=== PATIENT | male | born 1940 | race Caucasian/White ===

== ENCOUNTER 2017-10-02 06:10 | Day surgery (SDC) | payer MEDICARE, OTHER ==
[~2017-10-02] VITALS: Ht 182.9 cm; Wt 94.8 kg
[~2017-10-02 06:10] MED LIST: ASPI81CH PO; ASPI81EC PO; BETA.25.45 OD; CLOP75 PO; LEVSOD100 PO; LEVSOD150 PO; LISI10 PO; LISI20 PO; SIMV10 PO; TRAV.004OP BOTHEYES; TRIA80TC TOP
[2017-10-02] MEDS ORDERED: Travatan Z5 ML BOTHEYES (06:29)
== END 2017-10-02 08:09 | disposition home or self-care (01) ==
LOC: ORSCSDS 06:10
PROVIDERS: Ophthalmology
PROC: 08RK3JZ Replacement of Left Lens with Synthetic Substitute, Percutaneous Approach (ICD-10-PCS; principal; 2017-10-02 07:30)
DX: H25.12 Age-related nuclear cataract, left eye (principal); E03.9 Hypothyroidism, unspecified; E78.5 Hyperlipidemia, unspecified; J44.9 Chronic obstructive pulmonary disease, unspecified; I12.9 Hypertensive chronic kidney disease with stage 1 through stage 4 chronic kidney disease, or unspecified chronic kidney disease; N18.9 Chronic kidney disease, unspecified; Z86.73 Personal history of transient ischemic attack (TIA), and cerebral infarction without residual deficits; Z85.038 Personal history of other malignant neoplasm of large intestine; Z87.891 Personal history of nicotine dependence; Z79.01 Long term (current) use of anticoagulants; Z79.82 Long term (current) use of aspirin; Z79.899 Other long term (current) drug therapy
CPT/HCPCS: J2250; J3301; J7040; V2632

== ENCOUNTER 2020-11-04 16:39 | Inpatient (IN) | payer MEDICARE, OTHER ==
[~2020-11-04] VITALS: Ht 175.3 cm; Wt 77.4 kg
[~2020-11-04 16:39] MED LIST changes: -ASPI81CH PO; +Aspir 8181 MG PO; +Travatan Z5 ML BOTHEYES
[2020-11-04 17:00] LABS: Hematocrit 28.8 % (37.0-53.0); Hemoglobin 9.4 g/dL (13.5-17.5); Mean Corpuscular HGB 29.1 pg (26.0-34.0); Mean Corpuscular HGB Conc 32.6 g/dL (31.5-36.5); Mean Corpuscular Volume 89 fL (80-100); Mean Platelet Volume 12.7 fL (9.1-12.4); Platelet Count 160 K/mm3 (150-400); RDW Coefficient Variation 13.9 % (11.7-14.2); RDW Standard Deviation 45.5 fL (35.1-46.3); Red Blood Cell Count 3.23 M/mm3 (4.30-5.90); White Blood Cell Count 23.17 K/mm3 (4.00-11.30)
[2020-11-04 17:28] LABS: BAND PERCENT MAN 12 % (0-8); BASOPHILS PERCENT MAN 0 % (0-2); EOSINOPHILS PERCENT MAN 0 % (0-6); METAMYELOCYTE ABSOLUTE MAN 0.23 K/mm3 (0.00-0.00); METAMYELOCYTE PERCENT MAN 1 % (0-0); MONOCYTES PERCENT MAN 0 % (4-13); MYELOCYTE ABSOLUTE MAN 0.23 K/mm3 (0.00-0.00); MYELOCYTE PERCENT MAN 1 % (0-0); SEG NEUTROPHILS PERCENT MAN 86 % (41-73); TOTAL CELLS COUNTED 100
[2020-11-04 17:38] LABS: CPK Creatine Kinase 78 U/L (39-308); Troponin I <0.015 ng/mL (0.000-0.040)
[2020-11-04 18:01] LABS: Alanine Aminotransfer (ALT/SGP 17 U/L (12-78); Albumin, Blood 2.9 g/dL (3.4-5.0); Albumin/Globulin Ratio 0.7 (0.8-1.8); Alk Phos 64 U/L (50-136); Anion Gap 16 mmol/L (6-16); Aspartate Aminotrans (AST/SGOT 17 U/L (12-37); Bilirubin, Total 0.3 mg/dL (0.1-1.0); Blood Urea Nitrogen 169 mg/dL (8-24); Bun/Creatinine Ratio 19.1 (12.0-20.0); CO2, Blood 13 mmol/L (21-32); Calcium, Blood 11.4 mg/dL (8.5-10.1); Chloride, Blood 112 mmol/L (98-108); Creatinine, Blood 8.83 mg/dL (0.60-1.20); Globulin, Blood 4.3 g/dL (2.2-4.0); Glomerular Filtration Rate 6 (60-); Glucose, Blood 122 mg/dL (70-99); Potassium, Blood 7.2 mmol/L (3.5-5.5); Sodium, Blood 141 mmol/L (136-145); Total Protein, Blood 7.2 g/dL (6.4-8.2)
[2020-11-04 19:06] LABS: Source, Urine Clean Catch
[2020-11-04] MEDS ORDERED: Simvastatin20 MG PO (19:08)
[2020-11-04] MEDS ORDERED: EUTHYROX200 MC1 PO (19:09)
[2020-11-04 19:13] LABS: Appearance, Urine Hazy (Clear); Bilirubin, Urine Neg (Neg); Blood, Urine 5+ (Neg); Color, Urine Yellow (P-Yellow); Glucose Qualitative, Urine Neg (Neg); Ketones, Urine Neg (Neg); Leukocyte Esterase, Urine 3+ (Neg); Nitrite, Urine Neg (Neg); Protein, Urine 3+ (Neg); Urobilinogen, Urine NORM (Normal)
[2020-11-04 19:22] LABS: Red Blood Cells, Urine 25-50 /hpf (0-2); Squamous Epithelial Cells Few /hpf (Few)
[2020-11-04 19:23] LABS: Bacteria Few /hpf
[2020-11-04 19:51] LABS: SARS-Cov-2 (COVID-19) PCR, MMC NEGATIVE (NEGATIVE)
[2020-11-04 21:19] LABS: Albumin, Blood 2.7 g/dL (3.4-5.0); Albumin/Globulin Ratio 0.7 (0.8-1.8); Bilirubin, Total 0.3 mg/dL (0.1-1.0); Bun/Creatinine Ratio 18.1 (12.0-20.0); Calcium, Blood 10.8 mg/dL (8.5-10.1); Creatinine, Blood 9.08 mg/dL (0.60-1.20); Globulin, Blood 4.1 g/dL (2.2-4.0); Potassium, Blood 6.7 mmol/L (3.5-5.5); Total Protein, Blood 6.8 g/dL (6.4-8.2)
[2020-11-05 03:22] LABS: BASOPHILS ABSOLUTE AUTO 0.03 K/mm3 (0.00-0.23); BASOPHILS PERCENT AUTO 0 % (0-2); Hemoglobin 8.9 g/dL (13.5-17.5); LYMPHOCYTES ABSOLUTE AUTO 0.15 K/mm3 (0.84-5.20); LYMPHOCYTES PERCENT AUTO 1 % (21-46); MONOCYTES ABSOLUTE AUTO 0.75 K/mm3 (0.16-1.47); MONOCYTES PERCENT AUTO 4 % (4-13); Mean Corpuscular HGB 29.4 pg (26.0-34.0); Mean Corpuscular Volume 89 fL (80-100); Mean Platelet Volume 12.1 fL (9.1-12.4); Platelet Count 121 K/mm3 (150-400); RDW Coefficient Variation 14.1 % (11.7-14.2); RDW Standard Deviation 45.9 fL (35.1-46.3); Red Blood Cell Count 3.03 M/mm3 (4.30-5.90); White Blood Cell Count 18.21 K/mm3 (4.00-11.30)
[2020-11-05 03:23] LABS: EOSINOPHILS PERCENT AUTO 0 % (0-6); IMMATURE GRAN ABSOLUTE AUTO 0.11 K/mm3 (0.00-0.10); IMMATURE GRAN PERCENT AUTO 1 % (0-1); NEUTROPHILS ABSOLUTE AUTO 17.17 K/mm3 (1.96-9.15); NEUTROPHILS PERCENT AUTO 94 % (41-73)
[2020-11-05 03:40] LABS: BAND PERCENT MAN 9 % (0-8); BASOPHILS PERCENT MAN 0 % (0-2); EOSINOPHILS PERCENT MAN 0 % (0-6); LYMPHOCYTES ABSOLUTE MAN 0.18 K/mm3 (0.84-5.20); LYMPHOCYTES PERCENT MAN 1 % (21-46); METAMYELOCYTE ABSOLUTE MAN 0.36 K/mm3 (0.00-0.00); METAMYELOCYTE PERCENT MAN 2 % (0-0); MONOCYTES ABSOLUTE MAN 0.18 K/mm3 (0.16-1.47); MONOCYTES PERCENT MAN 1 % (4-13); NEUTROPHILS ABSOLUTE MAN 17.48 K/mm3 (1.96-9.15); SEG NEUTROPHILS PERCENT MAN 87 % (41-73); TOTAL CELLS COUNTED 100
[2020-11-05 03:45] LABS: Magnesium, Blood 1.8 mg/dL (1.6-2.4)
[2020-11-05 03:46] LABS: CPK Creatine Kinase 62 U/L (39-308); Uric Acid, Blood 7.2 mg/dL (3.5-7.2)
[2020-11-05 03:54] LABS: Albumin, Blood 2.5 g/dL (3.4-5.0); Anion Gap 11 mmol/L (6-16); Blood Urea Nitrogen 162 mg/dL (8-24); Bun/Creatinine Ratio 17.8 (12.0-20.0); CO2, Blood 17 mmol/L (21-32); Calcium, Blood 10.2 mg/dL (8.5-10.1); Chloride, Blood 112 mmol/L (98-108); Creatinine, Blood 9.11 mg/dL (0.60-1.20); Glomerular Filtration Rate 6 (60-); Glucose, Blood 132 mg/dL (70-99); Phosphorus, Blood 6.6 mg/dL (2.5-4.9); Potassium, Blood 5.9 mmol/L (3.5-5.5); Sodium, Blood 140 mmol/L (136-145)
--- NOTE | 2020-11-05 06:33 | NUR ---
SHIFT SUMMARY ASSUMED CARE OF PT AT 2200. PT IS A/OX4 BUT VERY HARD OF HEARING AND SLIGHTLY LETHARGIC. HEART SOUNDS REGULAR BUT TACHY. TELE SHOWS SINUS TACH WITH PAC @ 150 BUT RATE SLOWED TO 135 AFTER FLUID BOLUS. BP WERE RUNNING LOW, AT ONE POINT PT MAP WAS BELOW 60, HOSPITALIST NOTIFIED AND ORDERED 1L FLUID BOLUS. PT RESPONDED WELL. LUNG SOUNDS ARE CLEAR, PT DENIES SOB. PT URINE IS VERY DARK AND CLOUDY, PT IS MOSTLY CONTINENT. PT IS HAVING VERY LOOSE DARK GREEN STOOLS ABOUT EVERY HOUR. PT BUTTOCK AND GROIN ARE VERY RED, BARRIER CREAM APPLIED. CALL LIGHT IN REACH, BED IN LOWEST POSTION.
--- NOTE | 2020-11-05 19:12 | NUR ---
SHIFT SUMMARY PT A/O X3 AND VERY HARD OF HEARING. ADMITTED FOR UREMIC ENCEPHALOPATHY. MULTIPLE BLACK/GREEN LIQUID BM'S T/O THE DAY. ANUS EXCORIATED AND BLEEDING BRIGHT RED BLOOD. PHYSICIAN AWARE. DYER PLACED IN ORDER TO COLLECT 24 HOUR URINE. VERY LITTLE OUTPUT AND DRAINING CLOUDY EMIGDIO URINE. VSS BUT BP SOFT. REPORT GIVEN TO ONCOMING RN.
[2020-11-05 20:31] LABS: BASOPHILS ABSOLUTE AUTO 0.03 K/mm3 (0.00-0.23); BASOPHILS PERCENT AUTO 0 % (0-2); Hematocrit 24.1 % (37.0-53.0); Hemoglobin 7.9 g/dL (13.5-17.5); LYMPHOCYTES ABSOLUTE AUTO 0.22 K/mm3 (0.84-5.20); LYMPHOCYTES PERCENT AUTO 1 % (21-46); MONOCYTES ABSOLUTE AUTO 0.87 K/mm3 (0.16-1.47); MONOCYTES PERCENT AUTO 5 % (4-13); Mean Corpuscular HGB Conc 32.8 g/dL (31.5-36.5); Mean Corpuscular Volume 89 fL (80-100); Mean Platelet Volume 12.9 fL (9.1-12.4); Platelet Count 116 K/mm3 (150-400); RDW Coefficient Variation 14.5 % (11.7-14.2); RDW Standard Deviation 46.4 fL (35.1-46.3); Red Blood Cell Count 2.72 M/mm3 (4.30-5.90); White Blood Cell Count 16.56 K/mm3 (4.00-11.30)
[2020-11-05 20:32] LABS: EOSINOPHILS ABSOLUTE AUTO 0.03 K/mm3 (0.00-0.68); EOSINOPHILS PERCENT AUTO 0 % (0-6); IMMATURE GRAN ABSOLUTE AUTO 0.16 K/mm3 (0.00-0.10); IMMATURE GRAN PERCENT AUTO 1 % (0-1); NEUTROPHILS ABSOLUTE AUTO 15.25 K/mm3 (1.96-9.15); NEUTROPHILS PERCENT AUTO 92 % (41-73)
[2020-11-06 05:00] LABS: Protein, Urine Quantitative 762.5 mg/dL (0.0-11.9)
[2020-11-06 05:21] LABS: BASOPHILS ABSOLUTE AUTO 0.03 K/mm3 (0.00-0.23); BASOPHILS PERCENT AUTO 0 % (0-2); Hematocrit 21.7 % (37.0-53.0); Hemoglobin 7.2 g/dL (13.5-17.5); LYMPHOCYTES ABSOLUTE AUTO 0.22 K/mm3 (0.84-5.20); LYMPHOCYTES PERCENT AUTO 2 % (21-46); MONOCYTES ABSOLUTE AUTO 0.59 K/mm3 (0.16-1.47); MONOCYTES PERCENT AUTO 5 % (4-13); Mean Corpuscular HGB Conc 33.2 g/dL (31.5-36.5); Mean Corpuscular Volume 88 fL (80-100); Platelet Count 113 K/mm3 (150-400); RDW Coefficient Variation 14.4 % (11.7-14.2); RDW Standard Deviation 45.8 fL (35.1-46.3); Red Blood Cell Count 2.48 M/mm3 (4.30-5.90); White Blood Cell Count 13.12 K/mm3 (4.00-11.30)
[2020-11-06 05:22] LABS: EOSINOPHILS ABSOLUTE AUTO 0.19 K/mm3 (0.00-0.68); EOSINOPHILS PERCENT AUTO 1 % (0-6); IMMATURE GRAN ABSOLUTE AUTO 0.13 K/mm3 (0.00-0.10); IMMATURE GRAN PERCENT AUTO 1 % (0-1); Mean Platelet Volume 13.1 fL (9.1-12.4); NEUTROPHILS ABSOLUTE AUTO 11.96 K/mm3 (1.96-9.15); NEUTROPHILS PERCENT AUTO 91 % (41-73)
[2020-11-06 05:44] LABS: Magnesium, Blood 1.9 mg/dL (1.6-2.4)
--- NOTE | 2020-11-06 05:50 | NUR ---
SHIFT SUMMARY PT. A/OX3, NOT ORIENTATED TO TIME. ALERT AND AT TIMES LETHARGIC. IS EXTREMELY [place]. AT THE BEGINNING OF SHIFT DR. RAI WAS NOTIFIED OF ALL LABS, ELEVATED HR, LOW B/P AND MAP, AND LOW URINE OUTPUT. VERBAL ORDERS WERE GIVEN AND APPLIED. DYER IN PLACE WITH LITTLE URINE OUTPUT; CLOUDY/EMIGDIO. DID NOT HAVE ANY BM'S T/O THE NOC. PENDING STOOL SAMPLE. PT. ON TELE AT ST 120'S. PT. DENIES ANY SOB, CHEST DISCOMFORT OR ANY PAIN. BUTTOCK AREA (ANUS) RED/RAW APPLIED CREAM AND REPOSTIONED PT. T/O THE NOC.WILL CONT. TO MONITOR PT. TILL END OF SHIFT. CALL LIGHT IN REACH, BED ALARM ON, AND BED IN LOW POSITION.
[2020-11-06 06:07] LABS: BAND PERCENT MAN 4 % (0-8); BASOPHILS PERCENT MAN 0 % (0-2); EOSINOPHILS ABSOLUTE MAN 0.26 K/mm3 (0.00-0.68); EOSINOPHILS PERCENT MAN 2 % (0-6); LYMPHOCYTES ABSOLUTE MAN 0.39 K/mm3 (0.84-5.20); LYMPHOCYTES PERCENT MAN 3 % (21-46); METAMYELOCYTE ABSOLUTE MAN 0.52 K/mm3 (0.00-0.00); METAMYELOCYTE PERCENT MAN 4 % (0-0); MONOCYTES ABSOLUTE MAN 0.52 K/mm3 (0.16-1.47); MONOCYTES PERCENT MAN 4 % (4-13); NEUTROPHILS ABSOLUTE MAN 11.41 K/mm3 (1.96-9.15); SEG NEUTROPHILS PERCENT MAN 83 % (41-73); TOTAL CELLS COUNTED 100
[2020-11-06 06:09] LABS: Albumin, Blood 1.9 g/dL (3.4-5.0); Anion Gap 11 mmol/L (6-16); Blood Urea Nitrogen 162 mg/dL (8-24); Bun/Creatinine Ratio 17.7 (12.0-20.0); CO2, Blood 23 mmol/L (21-32); Calcium, Blood 10.4 mg/dL (8.5-10.1); Chloride, Blood 108 mmol/L (98-108); Creatinine, Blood 9.16 mg/dL (0.60-1.20); Glomerular Filtration Rate 6 (60-); Glucose, Blood 126 mg/dL (70-99); Phosphorus, Blood 7.9 mg/dL (2.5-4.9); Potassium, Blood 5.6 mmol/L (3.5-5.5); Sodium, Blood 142 mmol/L (136-145)
[2020-11-06 13:07] LABS: Percent Saturation 8.9 % (20.0-50.0)
[2020-11-06 13:30] LABS: Stool Occult Blood Guaiac 1 Pos (Neg)
[2020-11-06 16:00] LABS: Hematocrit 20.3 % (37.0-53.0); Hemoglobin 6.9 g/dL (13.5-17.5); Mean Corpuscular HGB 29.2 pg (26.0-34.0); Mean Corpuscular Volume 86 fL (80-100); Mean Platelet Volume 12.7 fL (9.1-12.4); Platelet Count 112 K/mm3 (150-400); RDW Coefficient Variation 14.4 % (11.7-14.2); Red Blood Cell Count 2.36 M/mm3 (4.30-5.90); White Blood Cell Count 13.33 K/mm3 (4.00-11.30)
--- NOTE | 2020-11-06 18:06 | NUR ---
SHIFT SUMMARY PT IS AO TO SELF ONLY. PT C/O EPIGASTRIC PAIN WHILE EATING-PROVIDER NOTIFIED DURING AM ROUNDS. PT DENIES N/V, SOB. PT IS ON RA WITH EPISODES OF APNEA DURING SLEEP. DYER CATHETER DRAINING AND PATENT. PT HAS POOR APPETITE. POWERGLIDE TO TAMARA INFUSING. TELE RUNNING SINUS TACH WITH ONE INCIDENT OF 130S THAT HAS RESOLVED WITH IV FLUIDS. PT IS BEDREST. PT IS IN BED, CALL LIGHT IN REACH, LOW POSITIONS.
[2020-11-07 04:05] LABS: BASOPHILS ABSOLUTE AUTO 0.02 K/mm3 (0.00-0.23); BASOPHILS PERCENT AUTO 0 % (0-2); EOSINOPHILS ABSOLUTE AUTO 0.35 K/mm3 (0.00-0.68); EOSINOPHILS PERCENT AUTO 3 % (0-6); Hematocrit 18.8 % (37.0-53.0); Hemoglobin 6.4 g/dL (13.5-17.5); IMMATURE GRAN ABSOLUTE AUTO 0.07 K/mm3 (0.00-0.10); IMMATURE GRAN PERCENT AUTO 1 % (0-1); LYMPHOCYTES ABSOLUTE AUTO 0.22 K/mm3 (0.84-5.20); LYMPHOCYTES PERCENT AUTO 2 % (21-46); MONOCYTES ABSOLUTE AUTO 0.85 K/mm3 (0.16-1.47); MONOCYTES PERCENT AUTO 7 % (4-13); Mean Corpuscular HGB 29.2 pg (26.0-34.0); Mean Corpuscular Volume 86 fL (80-100); Mean Platelet Volume 12.9 fL (9.1-12.4); NEUTROPHILS PERCENT AUTO 87 % (41-73); Platelet Count 107 K/mm3 (150-400); RDW Coefficient Variation 14.4 % (11.7-14.2); RDW Standard Deviation 45.1 fL (35.1-46.3); Red Blood Cell Count 2.19 M/mm3 (4.30-5.90); White Blood Cell Count 11.71 K/mm3 (4.00-11.30)
[2020-11-07 04:53] LABS: Albumin, Blood 1.8 g/dL (3.4-5.0); Anion Gap 9 mmol/L (6-16); Blood Urea Nitrogen 163 mg/dL (8-24); CO2, Blood 26 mmol/L (21-32); Calcium, Blood 10.2 mg/dL (8.5-10.1); Chloride, Blood 106 mmol/L (98-108); Creatinine, Blood 9.06 mg/dL (0.60-1.20); Glomerular Filtration Rate 6 (60-); Glucose, Blood 125 mg/dL (70-99); Phosphorus, Blood 8.4 mg/dL (2.5-4.9); Potassium, Blood 5.4 mmol/L (3.5-5.5); Sodium, Blood 141 mmol/L (136-145)
--- NOTE | 2020-11-07 05:30 | NUR ---
SHIFT SUMMARY PT. A/OX2, NOT ORIENTATED TO TIME OR SITUATION. CONFUSED. IS EXTREMELY [place]. AT THE START OF SHIFT DR. RYDER CAME TO PT'S ROOM. NOTIFIED OF LABS AND HEMOGLOBIN OF 6.2. PER DR. RYDER WILL REVIEW AM LABS AND HE WILL PUT IN ORDERS. VSS. DYER IN PLACE; URINE EMIGDIO. ON TELE ST IN THE 120'S. PT. DENIES ANY SOB, CHEST PAIN OR CHEST PRESSURE. JOHN AND BUTTOCK AREA PINK/RED AND PAINFUL WHEN CLEANING AREA. APPLIED BARRIER CREAM. [place] ON COCCY AREA. PT. REPOSITIONED X2. PT. ON RA O2 ABOVE 92%. REPOSITINED Q2H. CALL LIGHT IN W/I REACH, BED ALARM ON, AND BED IN LOW POSTION. FREQUENT ROOM CHECKS.
[2020-11-07 14:47] LABS: Hematocrit 21.4 % (37.0-53.0); Hemoglobin 7.5 g/dL (13.5-17.5)
--- NOTE | 2020-11-07 19:30 | NUR ---
ASSUMED CARE. AOX3. SLOW TO RESPOND. FORGETFUL. WILL YELL OUT FOR HELP. BED ALARM IS ON. NS INFUSING INTO POWERGLIDE IN LUE. NS W BICARB INFUSING INTO PERIPHERIAL ON R AC. BOTH SITES WNL. LS DIMINISHED. NO COUGH OR CONGESTION NOTED. BLACK TARRY BM NOTED. CHANGED ATTENDS. 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 BARRIER CREAM APPLIED. CATHETER PATENT AND DRAINING. CLOUDY AT TIMES. STATES PAIN ALL OVER, BRUISING TO THE RIGHT SIDE OF BODY. REPOSITIONED IN BED. TELE RUNNING SINUS TACH. WILL CONTINUE TO MONITOR. CALL LIGHT IS IN REACH.
--- NOTE | 2020-11-07 19:35 | NUR ---
Reviw of patient with pysician and pt needs. Met with pt he was sleepy and slow but oriented. He is profoundly hard of hearing. Used hearing imparied brenna on my phone to communicate. Important and intricate subect matter so I could confirm understanding. pt having loose tarry stools. and low hemoglobin. pt very fatigued and shor converation and rest. Although alert he is very weak. Reviw with staff having his brother sahre decision making with him until he improves. To disfficult for him. Pt has very clear advance directive. Called his brother and reviewed his issues and needs. confirmed with brother and later carfully with patient wishes for DNR. pt brother and pt clear and adamant. Pt brother want reasonable and woudld like GI consult he has strong suppision he has cancer ans strong family history. He states pt functional until a few month ago. We discussed if cancer confirmed hospice is the choice. Pt live alone brther states he can no longer live on his own. His brother is also older pt may need placemnt.
--- NOTE | 2020-11-07 22:11 | NUR ---
FLUIDS GIVEN, REPOSITIONED FOR COMFORT. ATTENDS DRY. CALL LIGHT IN REACH. BED ALARM ON.
--- NOTE | 2020-11-08 00:26 | NUR ---
KRISTOPHER REPORTS PAIN HAS IMPROVED. HE FEELS A LOT BETTER. VITALS HAVE IMPROVED SOME. SITTING UP RIGHT IN BED, STATES IT IS COMFORTABLE FOR HIM. CALL LIGHT IS IN REACH, BED ALARM IS ON.
--- NOTE | 2020-11-08 02:00 | NUR ---
REPOSITIONED, HE FINISHED HIS WATER, IS WORKING ON SOME JUICE. CURRENTLY SLEEPING. STATES PAIN IS DOING "OK". BED ALARM ON, CALL LIGHT IN REACH/
[2020-11-08 04:09] LABS: Hematocrit 18.3 % (37.0-53.0); Hemoglobin 6.3 g/dL (13.5-17.5); Mean Corpuscular HGB 29.4 pg (26.0-34.0); Mean Corpuscular HGB Conc 34.4 g/dL (31.5-36.5); Mean Corpuscular Volume 86 fL (80-100); Mean Platelet Volume 12.2 fL (9.1-12.4); Platelet Count 92 K/mm3 (150-400); RDW Coefficient Variation 14.9 % (11.7-14.2); RDW Standard Deviation 46.4 fL (35.1-46.3); Red Blood Cell Count 2.14 M/mm3 (4.30-5.90); White Blood Cell Count 10.15 K/mm3 (4.00-11.30)
--- NOTE | 2020-11-08 04:18 | NUR ---
RESTING COMFORTABLY, REPOSITIONED ON RIGHT SIDE. DENIES ANY NEEDS.
[2020-11-08 04:52] LABS: Albumin, Blood 1.7 g/dL (3.4-5.0); Anion Gap 10 mmol/L (6-16); Blood Urea Nitrogen 148 mg/dL (8-24); Bun/Creatinine Ratio 17.1 (12.0-20.0); CO2, Blood 30 mmol/L (21-32); Calcium, Blood 10.5 mg/dL (8.5-10.1); Chloride, Blood 104 mmol/L (98-108); Creatinine, Blood 8.66 mg/dL (0.60-1.20); Glomerular Filtration Rate 6 (60-); Glucose, Blood 157 mg/dL (70-99); Phosphorus, Blood 8.5 mg/dL (2.5-4.9); Potassium, Blood 4.7 mmol/L (3.5-5.5); Sodium, Blood 144 mmol/L (136-145)
--- NOTE | 2020-11-08 05:20 | NUR ---
SHIFT SUMMARY: AOX2, SLOW TO RESPOND, [place]. FOLLOWS SOME DIRECTION. WILL YELL OUT AT TIMES, FORGETS TO USE CALL LIGHT. NEEDS CONSTANT CARE FOR REPOSITIONING, FLUID INTAKE AND BATHROOM NEEDS. VS WITH SINUS TACHYCARDIA. REPORTED PAIN TO THE RIGHT SIDE AROUND TO THE BACK. MD NOTIFED, FENTANYL 25MCQ GIVEN X1 THIS SHIFT, WHICH HELPED TO RELEIVE PAIN. WAS ABLE TO SLEEP PART OF SHIFT. CONTINUES TO HAVE LOOSE BLACK TARRY STOOLS. HELD BLOOD THINNERS. DYER PATENT AND DRAINING. STAGE 2 PRESSURE ULCER IN PERINUM, BARRIER CREAM APPLIED. BOTTOM RED. BRUSING ON BUE. IVF AND IV BICARB INFUSING T/O THE NIGHT. PHOSPHURUS 8.5, CREATINE 8.66. HGB BACK DOWN TO 6.3. ENDOSCOPE CANCELLED FOR TODAY DUE TO LOW PLATLET COUNT. WILL CONTINUE TO MONITOR, CALL LIGHT IS IN REACH, BED ALARM ON.
[2020-11-08 05:45] LABS: BAND PERCENT MAN 5 % (0-8); BASOPHILS PERCENT MAN 0 % (0-2); EOSINOPHILS PERCENT MAN 5 % (0-6); LYMPHOCYTES PERCENT MAN 3 % (21-46); MONOCYTES ABSOLUTE MAN 1.01 K/mm3 (0.16-1.47); MONOCYTES PERCENT MAN 10 % (4-13); NEUTROPHILS ABSOLUTE MAN 8.32 K/mm3 (1.96-9.15); SEG NEUTROPHILS PERCENT MAN 77 % (41-73); TOTAL CELLS COUNTED 100
--- NOTE | 2020-11-08 08:00 | NUR ---
pt laying in bed, awake, called nurse in to room for a change, he is confused, will be getting a unit of prbc's today, lungs are dim t/o, resp even and unlabored, no cough noted, hrr, tele in place running st per monitor, see strip, ppp+1, cap refill< 3sec, vs stable, afebrile, iv sites: piv to rac appears infiltrated, stopped iv will place another when time, power glide to jyoti, site is clear and patent, btx4, abd flat soft nontender, attends in place skin has a bruise to rflank otherwise c/d/i, heather quintero, call light in reach.
--- NOTE | 2020-11-08 09:59 | NUR ---
PHYSICIAN REQUESTED A PHOTO OF RECTAL/ANAL ULCER TO BE TAKEN AND PLACED ON CHART. ATTEMPTED TO OBTAIN PHOTO WITH UNIT STAFF CAMERA, BATTERY INSUFFICIENT TO COMPLETE ON TASK, PUT ON TECHNICAL TRAINING MANAGER. PRIMARY RN NOTIFIED TO COMPLETE THIS TASK.
--- NOTE | 2020-11-08 10:31 | NUR ---
ASPIRIN 81MG GIVEN PER PRIMARY NURSE REQUEST. VERIFIED WITH EMAR ORDER. GIVEN PO WITH APPLE SAUCE.
[2020-11-08 13:08] LABS: ANA DIRECT Negative (Negative); ANTIMYELOPEROXIDASE (MPO) ABS <9.0 U/mL (0.0-9.0); ANTIPROTEINASE 3 (PR-3) ABS <3.5 U/mL (0.0-3.5); ATYPICAL PANCA <1:20 titer (Neg:<1:20); CYTOPLASMIC (C-ANCA) <1:20 titer (Neg:<1:20); PERINUCLEAR (P-ANCA) <1:20 titer (Neg:<1:20)
[2020-11-08 14:08] LABS: ALBUMIN 2.6 g/dL (2.9-4.4); ALPHA-1-GLOBULIN 0.4 g/dL (0.0-0.4); ALPHA-2-GLOBULIN 0.8 g/dL (0.4-1.0); BETA GLOBULIN 0.7 g/dL (0.7-1.3); GAMMA GLOBULIN 0.9 g/dL (0.4-1.8); GLOBULIN, TOTAL 2.8 g/dL (2.2-3.9); IMMUNOGLOBULIN A, QN, SERUM 191 mg/dL (61-437); IMMUNOGLOBULIN G, QN, SERUM 739 mg/dL (603-1613); IMMUNOGLOBULIN M, QN, SERUM 69 mg/dL (15-143); M-SPIKE Not Observed g/dL (Not Observed); PROTEIN, TOTAL, SERUM 5.4 g/dL (6.0-8.5)
--- NOTE | 2020-11-08 15:46 | NUR ---
PT RECIEVING TRANSFUSING. V.S. STABLE. VERY SLEEPY, WILL HAVE LAB DRAW 1/2 HR AFTER IN. CALL LIGHT IN REACH.
[2020-11-08 17:22] LABS: Hematocrit 23.7 % (37.0-53.0); Hemoglobin 7.9 g/dL (13.5-17.5)
[2020-11-09 05:54] LABS: Hematocrit 21.8 % (37.0-53.0); Hemoglobin 7.3 g/dL (13.5-17.5)
--- NOTE | 2020-11-09 05:55 | NUR ---
SHIFT SUMMARY NO ACUTE CHANGES OVERNIGHT. PT AOX2. FORGETFUL BUT HAS USE CALL LIGHT APPROPRIATELY. PT HAS BEEN C/O NECK PAIN AT THE BEGINNING OF SHIFT TIL AROUND MIDNIGHT. TRIED REPOSITIONED, PILLOW AND TOWEL UNDER NECK BUT NO IMPROVEMENT. ADMNISTERED X1 DOSE OF 25MCG FENTANYL WHICH RELIEVES NECK PAIN AND ABLE TO GET SOME SLEEP AFTER MIDNIGHT. IVF AND BICARB STILL INFUSING. PT ON NECTAR THICK/PUREE DIET. ASPIRATION PRECAUTION WHEN GIVING PO. MEDS CRUSHED WITH APPLESAUCE. PT REMAIN TO HAVE BRUISING ON R FLANK. DYER IN PLACED. URINE OUTPUT 1300 ML WITH SOME TINGE BLOOD. LUNGS SOUNDS CLEAR BUT DIMINISHED. ENC DEEP BREATHS. TELE:SINUS TACHY AT 100'S PER TELE THIS AM. CALL LIGHT WITHIN REACH. WILL PROVIDE REPORT TO ONCOMING NURSE.
[2020-11-09 06:11] LABS: Albumin, Blood 1.8 g/dL (3.4-5.0); Anion Gap 7 mmol/L (6-16); Blood Urea Nitrogen 137 mg/dL (8-24); Bun/Creatinine Ratio 17.2 (12.0-20.0); CO2, Blood 32 mmol/L (21-32); Calcium, Blood 10.6 mg/dL (8.5-10.1); Chloride, Blood 103 mmol/L (98-108); Creatinine, Blood 7.96 mg/dL (0.60-1.20); Glomerular Filtration Rate 7 (60-); Glucose, Blood 110 mg/dL (70-99); Magnesium, Blood 1.9 mg/dL (1.6-2.4); Phosphorus, Blood 7.8 mg/dL (2.5-4.9); Potassium, Blood 4.5 mmol/L (3.5-5.5); Sodium, Blood 142 mmol/L (136-145)
--- NOTE | 2020-11-09 06:44 | NUR ---
IN ROOM TO SEE PATIENT
[2020-11-09 09:10] LABS: ANTIGLOMERULAR BM AB 5 units (0-20)
--- NOTE | 2020-11-09 15:12 | NUR ---
SHIFT SUMMARY: PATIENT IS ALERT AND ORIENTED X2. BED ALARM ON BUT HAS USED CALL LIGHT DURING SHIFT. PATIENT HAS BEEN REPOSITIONED ABOUT EVERY HOUR ALONG WITH HIM NEEDING TO USE THE BEDPAN. PATIENT HAS BEEN HAVING BM'S ABOUT EVERY HOUR OR SO THAT IS BLACK AND LOOSE. IVF AND BICARB ARE STILL INFUSING. PATIENT IS ON NECTAR THICK LIQUIDS AND PILLS ARE TO BE CRUSHED WITH APPLESAUCE. DYER IS IN PLACE AND DRAINING CLEAR URINE. PATIENT REMAINS TO HAVE BRUISING ON THE RIGHT ABD. LUNG SOUNDS CLEARED BUT DIMINISHED. ENCOURAGING DEEP BREATHING. CALL LIGHT WITHIN REACH. THE PLAN IS TO HAVE AN ENDOSCOPY TOMORROW TO DETERMINE WHAT WILL BE DONE NEXT. HE IS TO BE NPO AT MIDNIGHT.
--- NOTE | 2020-11-10 04:49 | NUR ---
SHIFT SUMMARY: PT HAS BEEN A&O X4 THROUGHOUT SHIFT. UNCOMFORTABLE MAJORITY OF NIGHT D/T C/O LOW BACK PAIN AND NECK PAIN. PT MEDICATED WITH TYLENOL AND 25MCG OF FENTANYL PER EMAR. MEDS NOT EFFECTIVE. PT REPOSITONED FREQUENTLY. ATTEMPTED TO ASSIST PT TO A STANDING POSITION, HOWEVER PT UNABLE. PT GIVEN K PAD FOR COMFORT. HAVING LOOSE BROWN STOOLS THIS SHIFT. USING BEDPAN WITH 1 ASSIST. DYER PATENT AND DRAINING YELLOW URINE. SEDIMENT PRESENT IN TUBING. ATTENDS IN PLACE. PLAN FOR UPPER ENDOSCOPY TODAY.
[2020-11-10 05:08] LABS: Hemoglobin 7.6 g/dL (13.5-17.5)
[2020-11-10 06:13] LABS: Albumin, Blood 1.9 g/dL (3.4-5.0); Anion Gap 9 mmol/L (6-16); Blood Urea Nitrogen 130 mg/dL (8-24); Bun/Creatinine Ratio 16.2 (12.0-20.0); CO2, Blood 32 mmol/L (21-32); Calcium, Blood 10.7 mg/dL (8.5-10.1); Chloride, Blood 101 mmol/L (98-108); Creatinine, Blood 8.03 mg/dL (0.60-1.20); Glomerular Filtration Rate 7 (60-); Glucose, Blood 109 mg/dL (70-99); Phosphorus, Blood 8.3 mg/dL (2.5-4.9); Potassium, Blood 4.4 mmol/L (3.5-5.5); Sodium, Blood 142 mmol/L (136-145)
--- NOTE | 2020-11-10 10:10 | NUR ---
Met with Valentín in his room this morning. He is awake and alert. He is [place]. He reports that he is having a test done today (EGD planned for this afternoon). He is unhappy that he is unable to eat or drink until after his procedure. He reports some neck, back and coccyx discomfort. He has a round raised, red rash noted to his upper chest and back. He reports a fall at home and some weakness. His brother, Isrrael, lives locally. Valentín reports he spoke with his brother this morning. Will plan to follow up with Valentín after results from procedure are available to assist with advanced care planning and symptom managment prn.
[2020-11-10 12:11] LABS: M-SPIKE, % Not Observed % (Not Observed); PROTEIN,TOTAL,URINE 771.5 mg/dL (Not Estab.)
--- NOTE | 2020-11-10 14:23 | NUR ---
PT IN PROCEDURE AT THIS TIME
--- NOTE | 2020-11-10 14:31 | NUR ---
PT IN TO DAYSURGERY BY [facility] WITH OTHER STAFF. History, Chart, Medications and Allergies reviewed before start of procedure. Lungs clear T/O to Auscultation. Patient confirms NPO status and agrees with scheduled surgery. Pre-Op teaching done. Pt verbalizes understanding.
--- NOTE | 2020-11-10 15:13 | NUR ---
11/10/20 1513 Philippe Nagy History, Chart, Medications and Allergies reviewed before start of procedure. Patient confirms NPO status and agrees with scheduled surgery. 3-LEAD EKG REVIEWED WITH PHYSICIAN PRIOR TO START OF PROCEDURE. MONITOR INTACT WITH CONTINUOUS PULSE OXIMETRY AND INTERMITTENT BP. PATIENT DETERMINED TO BE ASA APPROPRIATE FOR PROPOFOL SEDATION PRIOR TO START OF PROCEDURE BY DR. MENENDEZ. Bite Block Placed. ANESTHESIA, DR BENAVIDES GAVE CLEARANCE FOR RN SEDATION.
--- NOTE | 2020-11-10 15:32 | NUR ---
REPORT GIVEN TO ROOM 336 RN; PT TO BE TRANSFERRED TO 336 AFTER PROCEDURE.
--- NOTE | 2020-11-10 15:59 | NUR ---
SHIFT SUMMARY/ TRANSFER PT TRANSFERRED TO ROOM 336 POST-PROCEDURE. ORIENTED TO ROOM. BELONGINGS SENT WITH PT. PT HAS BEEN ALERT THIS SHIFT, CONFUSED AT TIMES BUT USING CALL LIGHT TO MAKE NEEDS KNOWN. PT HAS BEEN ON RA T/O THE DAY. WAS NPO BEFORE PROCEDURE. DYER PATENT, IN PLACE, STAT LOCK ON, WITH YELLOW URINE. PT C/O BACK AND NECK PAIN AND HAS BEEN REPOSITIONED FREQUENTLY AND MEDICATED WITH FENT PRN PER ORDER.
--- NOTE | 2020-11-10 17:30 | NUR ---
SHIFT SUMMARY PT ARRIVED TO UNIT 1545. NOTED BILATERAL NONPITING EDEMA IN UPPER EXTREMETIES. LUNGS AUSCULTATED CLEAR WITH DIMINISHED BASES. PT IS HARD OF HEARING BUT ABLE TO MAKE NEEDS KNOWN. PT SLID FROM BED WITH STAFF ASSIST OF TWO SO UNSURE OF PREVIOUS BASELINE ACTIVITY. PT HAS WOUND ON COCCYX I DID NOT GET TO ASSESS, BUT PT IS HAVING DAILY PHOTOS TAKEN TO MONITOR.
[2020-11-11 05:25] LABS: Hematocrit 23.8 % (37.0-53.0); Hemoglobin 7.7 g/dL (13.5-17.5)
[2020-11-11 05:50] LABS: Magnesium, Blood 1.8 mg/dL (1.6-2.4)
[2020-11-11 05:53] LABS: Anion Gap 10 mmol/L (6-16); Blood Urea Nitrogen 128 mg/dL (8-24); Bun/Creatinine Ratio 14.9 (12.0-20.0); CO2, Blood 32 mmol/L (21-32); Calcium, Blood 10.5 mg/dL (8.5-10.1); Chloride, Blood 102 mmol/L (98-108); Creatinine, Blood 8.57 mg/dL (0.60-1.20); Glomerular Filtration Rate 6 (60-); Glucose, Blood 112 mg/dL (70-99); Potassium, Blood 4.4 mmol/L (3.5-5.5); Sodium, Blood 144 mmol/L (136-145)
[2020-11-11 05:54] LABS: Phosphorus, Blood 8.4 mg/dL (2.5-4.9)
--- NOTE | 2020-11-11 08:23 | NUR ---
Patient had multiple loose stools first half of the shift. they were brown, loose. no overt signs of blood. patient rectal area painful and patient has asked twice for lomotil. MD notified. GI panel ordered, and patient can have lomotil after sample is sent . Patient has only been able to make gas and unable to pass any stool since. Swallowed po meds one at a time with nectar thick juice without difficulty. pleasant and cooperative with care
[2020-11-11 11:28] LABS: Adenovirus F 40/41 Not Detected (NOT DETECT); Astrovirus Not Detected (NOT DETECT); Campylobacter Sp Not Detected (NOT DETECT); Cryptosporidium Not Detected (NOT DETECT); Cyclospora Cayetanensis Not Detected (NOT DETECT); E. Coli O157 Not Detected (NOT DETECT); Entamoeba Histolytica Not Detected (NOT DETECT); Enteroaggregative E. coli-EAEC Not Detected (NOT DETECT); Enteropathogenic E. coli-EPEC Not Detected (NOT DETECT); Enterotoxigenic E. coli-ETEC Not Detected (NOT DETECT); Giardia Lamblia Not Detected (NOT DETECT); Norovirus GI/GII Not Detected (NOT DETECT); Plesiomonas Shigelloides Not Detected (NOT DETECT); Rotavirus A Not Detected (NOT DETECT); Salmonella Sp Not Detected (NOT DETECT); Sapovirus Not Detected (NOT DETECT); Shiga Toxin-prod E. coli-STEC Not Detected (NOT DETECT); Shigella/Enteroin E. coli-EIEC Not Detected (NOT DETECT); Vibrio Cholerae Not Detected (NOT DETECT); Vibrio Sp Not Detected (NOT DETECT); Yersinia Enterocolitica Not Detected (NOT DETECT)
--- NOTE | 2020-11-11 16:00 | NUR ---
Summary of [facility] interventions t/o day. T/c received from Dr Preciado with update on current status, prognosis and concerns r/t cont ES renal failure. no bleeding noted on EDG done yesterday and desire to establish goals of care with family. Brother, Isrrael, who is also pt's designaged proxy medical decision maker was called [phone] with above update and options for care. He reiterated that his brother has been failing for some time at home alone, despite daily visits from family and frequent phone calls t/o the day to check on him. He states, "my brother is stubborn and wanted to stay in his home alone". When given the Dr's information, he states his brother never wanted life prolonging tx or "to be hooked to any tubes". WE discussed code status and goal of care preference for family at this time is for pt to be kept comfortable and if possible be able to be d/c'd to care of family with hospice. When asked if multiple family members were available to care for Valentín and was there a family home that pt could transfer to, Isrrael stated yes. I asked if he is a and Isrrael stated yes, but unsure if pt had ever utilized [facility] services. With updates to DR. CRANDALL obtained and entered for comfort care. Arrangements made for family visits today and t/o the rest of Valentín's stay. Updated pt's RN and several times and I had multliple conversations with Isrrael to discuss short and fci care plans. I also updated Tricia in [facility], who had already been in contact with the [facility] to check on pt's benefits and elibibilty for placement in [facility] hospice unit if family wanted to pursue this. Plan as outlined for Isrrael and pt's RN is that comfort care initiated, including orders for comfort care medications that can be replicated in a home setting to be sure we are able to meet his s/s management needs prior to d/c. If pt is progressing in the EOL process and becomes too much care too quickly for family to manage we will request [facility] bed. If pt becomes imminent in next 48-72 hours, we will not attempt to transfer. Brother is caring for pt's home and cat daily and plans to visit pt daily while in the hospital. VO for hospice also entered and discussed with Tricia/JULISA. attempt to transfer
--- NOTE | 2020-11-11 18:07 | NUR ---
SHIFT SUMMARY PATIENT HAS HAD MULTIPLE LOOSE STOOLS THIS AM. GI PANEL WAS COLLECTED AND CAME BACK NEGATIVE. LOMOTIL WAS GIVEN AFTER GI PANEL CAME BACK NEGATIVE. PATIENT HAS HAD PO MEDS IN APPLESAUCE. PATIENT HAS BEEN PLACED IN COMFORT CARE AND HAS CODE STATUS CHANGED FROM FULL CODE TO DNR. PATIENT REFUSES DIALYSIS. PATIENT IS ALERT AND ORIENTED X3 AND IS HARD OF HEARING.
--- NOTE | 2020-11-12 05:55 | NUR ---
SHIFT SUMMARY PATIENT ALERT AND ORIENTED TO SELF. WAS MEDICATED PER EMAR FOR PAIN. NO COMPLAINTS OF SHORTNESS OF BREATH. NO ACUTE ISSUES OVERNIGHT. BED IN LOWEST POSITION WITH WHEELS LOCKED AND ALARM ON. CALL LIGHT WITHIN REACH. REPORT GIVEN TO ONCOMING RN.
[2020-11-12 08:40] LABS: Albumin, Blood 2.1 g/dL (3.4-5.0); Anion Gap 9 mmol/L (6-16); Blood Urea Nitrogen 124 mg/dL (8-24); CO2, Blood 30 mmol/L (21-32); Calcium, Blood 10.4 mg/dL (8.5-10.1); Chloride, Blood 100 mmol/L (98-108); Glucose, Blood 105 mg/dL (70-99); Potassium, Blood 4.3 mmol/L (3.5-5.5); Sodium, Blood 139 mmol/L (136-145)
[2020-11-12 08:42] LABS: Bun/Creatinine Ratio 14.5 (12.0-20.0); Creatinine, Blood 8.56 mg/dL (0.60-1.20); Glomerular Filtration Rate 6 (60-); Phosphorus, Blood 8.2 mg/dL (2.5-4.9)
--- NOTE | 2020-11-12 09:43 | NUR ---
Comfort care visit Met with Valentín this morning. He reports that he is tired of being here. He wants to go to the [facility]. "I can't take care of myself right now, I need to go to the [facility]." Explained to him that Isrrael is working with CM on a discharge plan either home with family care or possibly the VA. Valentín reports that his brother, Isrrael, visited yesterday and plans to return today. No other complaints noted. Extra blanket provided per Valentín's request.
--- NOTE | 2020-11-12 14:06 | NUR ---
TRANSFERING CARE OVER. PT HAS BEEN COMFORTABLE FOR THIS PART OF THE SHIFT. PT DOES NOT USE CALL LIGHT AND CALLS OUT WHEN HE WANTS SOMETHING. PT REPORTED PAIN AND WAS TREATED PER EMAR. NO DISTRESS NOTED AT THIS TIME AND CALL LIGHT WITHIN REACH.
--- NOTE | 2020-11-12 18:11 | NUR ---
SHIFT SUMMARY PATIENT IS ALERT AND ORIENTED X2. WAS MEDICATED WITH TYLENOL FOR BACK PAIN ONCE THIS SHIFT. NO COMPLAINTS OF SOB, NAUSEA, VOMITTING THIS SHIFT. NO ACUTE ISSUES DURING THIS SHIFT. BED IN LOWEST POSITION. WILL CONTINUE TO MONITOR UNTIL END OF SHIFT.
--- NOTE | 2020-11-12 18:17 | NUR ---
SHIFT SUMMARY PATIENT HAS BEEN INCREASINGLY ALERT AND ORIENTED. NO ACUTE EVENTS DURING THIS SHIFT PATIENT HAS HAD NO COMPLAINTS OF SOB, PAIN, NAUSEA OR VOMITTING. PATIENT HAD A RECTAL TUBE FOR LACTULOSE AND WAS ACCIDENTLY TAKEN OUT AND SWITCHED TO ORAL LACTULOSE. PATIENT IS STANDBY ASSIST TO RESTROOM. BED IN LOCKED AND LOWEST POSITION AND WILL CONTINUE TO MONITOR UNTIL END OF SHIFT.
--- NOTE | 2020-11-13 06:18 | NUR ---
SHIFT SUMMARY PATIENT MEDICATED PER EMAR FOR PAIN. NO COMPLAINTS OF SHORTNESS OF BREATH. NO ACUTE ISSUES NOTED OVERNIGHT. BED IN LOWEST POSITION WITH WHEELS LOCKED AND ALARM ON. CALL LIGHT WITHIN REACH. REPORT GIVEN TO ONCOMING RN.
--- NOTE | 2020-11-13 16:40 | NUR ---
PT AOX2 WITH CONFUSION. PT IS TURNED Q2 HRS AND DOES NOT ALWAYS USE CALL LIGHT AND WILL CALL OUT. PT IS INNCONTENT OF BOWELS. PT HAS BEEN COMFORTABLE THROUGHOUT THE SHIFT. CALL LIGHT IS WITHIN REACH AND BED ALARM IN PLACE WILL CONTINUE TO MONITOR.
--- NOTE | 2020-11-14 06:10 | NUR ---
DENTAL LABORATORY SUPERVISOR SUMMARY PT SLEPT WELL TONIGHT. ABLE TO MAKE NEEDS KNOWN. REPOSITIONING AND OTHER COMFORT MEASURES GIVEN. DENIES PAIN, NAUSE. NO SOB NOTED. NO ACUTE CHANGES, CALL LIGHT WITHIN REACH, BED ALARM ON, WILL CONTINUE TO MONITOR.
--- NOTE | 2020-11-14 13:01 | NUR ---
Update to pt's brother as planned. He was very happy to visit over the weekend and see improved mood and appetite in [place]. Isrrael had some d/c planning questions I could not answer and I directed him to call JULISA Hager back, who he had already spoken to this am. His primary question that his d/c plan of choice hinges on is whether the [place] hospice unit or a [facility] would allow family visits while pt was receiving EOL care there. If visits are limited or not allowed he states he would want to bring his brother to his own home and provide care with other family members and a hospice agency for support. This was discussed with JULISA also later in the day. Isrrael verbalized appreciation for care his brother has received here and reiterated that he would not want dialysis or any aggressive life prolonging care.
--- NOTE | 2020-11-14 17:09 | NUR ---
SHIFT SUMMARY PATIENT IS ALERT AND ORIENTED X2. PATIENT IS HARD OF HEARING. PT SLEPT MOST THE MORNING AND HAS BEEN AWAKE MOST OF AFTERNOON WITH BROTHER VISITING. PATIENT HAS USED THE CALL LIGHT APPROPRIATELY THIS SHIFT. PATIENT HAS NEEDED TYLENOL AND ROXINOL FOR PAIN IN NECK REGION DURING SHIFT. PATIENT HAS BEEN READJUSTED AND REPOSITIONED Q2 WITH GOOD RESULTS. BED IN LOCKED AND LOWEST POSITION, CALL LIGHT IN REACH AND WILL CONTINUE TO MONITOR UNTIL END OF SHIFT.
--- NOTE | 2020-11-15 05:47 | NUR ---
SHIFT SUMMARY COMFORT CARE. ALERT. [place]. ABLE TO ANSWER YES/NO QUESTIONS APPROPRIATE. OCC YELLS OUT OR MOANS. REPORTS PAIN IN NECK, BACK MEDICATED c 5MG ROXANOL & PT REPORTED NO RELIEF THEREFORE MEDICATED c 15MG ROXANOL & 1X TYLENOL. PT RESTED WELL AFTER MEDICATION. NO S/SX N/V OR SOB. REPOSITIONED PRN. PLAN TO POSSIBLY DC HOME c BROTHER ON HOSPICE. CALL LIGHT & BED ALARM IN PLACE.
--- NOTE | 2020-11-15 18:57 | NUR ---
SHIFT SUMMARY: PT HAS BEEN LETHARGIC T/OUT THE DAY. AROUND 1230 TODAY BEGAN MOANING AND WOKE UP AND RESPONDING TO QUESTIONS BUT HAD DIFFICULTY HEARING. PT HAS BEEN COMPLAINING OF R SIDE PAIN AND NECK PAIN SINCE THEN AND CONTINUES TO WAKE UP MOANING AND DRIFTS BACK TO SLEEP. TITRATED MORPHINE AND LAST DOSE GIVEN WAS 20 MG. PT CONTINUES TO HAVE CLEAR YELLOW URINE OUTPUT VIA CATHETER. PT WAS ABLE TO SWALLOW SOME SIPS OF WATER EARLIER WITHOUT DIFFICULTY BUT HAD DIFFICULTY THIS AFTERNOON.
--- NOTE | 2020-11-16 03:48 | NUR ---
UPDATE PT FOUND @0335 BY [employer]UTION SPEC. 2 RN ASSESSED PT & CONFIRMED. INFORMED BROTHER KAMILAH @0340 & STATED HE WOULD BE IN TO HOSPITAL IN 45MIN TO 1 HR. ALSO STATED HOME CHOSEN WAS [facility] IN [place].
--- NOTE | 2020-11-16 05:39 | NUR ---
Call back TOD- Met with pt's brother. He had a flat affect, but appeared to be grieving appropriately. Space was provided for him to reminisce about pt's life. He states he has an adequate support system where he lives in [place]. Verbal supplication provided and brother voices gratitude.
--- NOTE | 2020-11-16 15:26 | NUR ---
Received a call from froilan Arcos's brother. He stated that he wanted to say thank you to the staff for taking care of his brother during his final days. Is[facility]rael reports that the [facility] to the [facility] on hosp[facility]. Offered to contact the MD for Isrrael to let them know that his brother had . LM on PC HANNAH Link's voice mail in the PC department at the MD [phone] ext [phone] to let them know that this has .
== END 2020-11-16 03:35 | DRG 871 ==
LOC: ER 16:39 → MEDS 20:03 → PCU 20:03 → SURS 20:03 → MEDS 11-10 15:44
PROVIDERS: Emergency Medicine; Hospitalist; Internal Medicine; Internal Medicine Gastroenterology; Internal Medicine Nephrology; Student in an Organized Health Care Education/Training Program; ADMIT Internal Medicine
PROC: 0DJ08ZZ Inspection of Upper Intestinal Tract, Via Natural or Artificial Opening Endoscopic (ICD-10-PCS; 2020-11-10)
PROC: 30233N1 Transfusion of Nonautologous Red Blood Cells into Peripheral Vein, Percutaneous Approach (ICD-10-PCS; principal; 2020-11-10 15:00)
DX: A41.50 Gram-negative sepsis, unspecified (principal); N18.6 End stage renal disease; K26.4 Chronic or unspecified duodenal ulcer with hemorrhage; K22.11 Ulcer of esophagus with bleeding; K25.4 Chronic or unspecified gastric ulcer with hemorrhage; N17.9 Acute kidney failure, unspecified; N39.0 Urinary tract infection, site not specified; G93.49 Other encephalopathy; D62 Acute posthemorrhagic anemia; I69.354 Hemiplegia and hemiparesis following cerebral infarction affecting left non-dominant side; E87.2 Acidosis; Z66 Do not resuscitate; Z51.5 Encounter for palliative care; Z20.822 Contact with and (suspected) exposure to COVID-19; E83.39 Other disorders of phosphorus metabolism; E87.5 Hyperkalemia; E83.52 Hypercalcemia; E03.9 Hypothyroidism, unspecified; N28.9 Disorder of kidney and ureter, unspecified; Z88.8 Allergy status to other drugs, medicaments and biological substances; Z90.49 Acquired absence of other specified parts of digestive tract; Z98.890 Other specified postprocedural states; Z87.891 Personal history of nicotine dependence; Z79.899 Other long term (current) drug therapy; Z79.82 Long term (current) use of aspirin; Z79.02 Long term (current) use of antithrombotics/antiplatelets; K40.90 Unilateral inguinal hernia, without obstruction or gangrene, not specified as recurrent; J43.9 Emphysema, unspecified; L89.892 Pressure ulcer of other site, stage 2; K21.9 Gastro-esophageal reflux disease without esophagitis
CPT/HCPCS: 0097U; 36415; 36430; 70450; 71045; 74150; 74174; 80053; 80069; 81001; 81050; 82272; 82550; 82728; 82784; 82947; 83516; 83520; 83540; 83550; 83605; 83690; 83735; 83880; 84100; 84132; 84156; 84165; 84166; 84484; 84550; 85014; 85018; 85025; 85027; 86038; 86256; 86334; 86335; 86850; 86900; 86901; 86923; 87040; 87077; 87086; 87186; 92526; 92610; 93005; 93010; 96361; 96365; 96366; 96367; 96375; 97110; 97162; 97530; 99285-25; A9270; C1751; C9113; G0103; J0610; J0696; J0881; J1644; J1815; J2543; J2704; J3010; J3370; J7030; J7040; J7070; P9016; Q9967; U0004